=== PATIENT | female | born 1990 | race Caucasian/White ===

== ENCOUNTER 2017-04-01 05:44 | Emergency (ER) | payer OTHER, SELFPAY | END 2017-04-01 15:45 | disposition E | PROVIDERS: Emergency Provider Emergency Medicine; Visit Provider Emergency Medicine | DX: I33.0 Acute and subacute infective endocarditis (principal); E87.4 Mixed disorder of acid-base balance; I21.4 Non-ST elevation (NSTEMI) myocardial infarction; D72.829 Elevated white blood cell count, unspecified; D64.9 Anemia, unspecified; J96.01 Acute respiratory failure with hypoxia | CPT/HCPCS: 36556; 31500; 36415; 71010; 80053; 82150; 82272; 82550; 82553; 82803; 82962; 83605; 83690; 83735; 83880; 84100; 84436; 84443; 84479; 84484; 84703; 85025; 85044; 85378; 86078; 86850; 86900; 86901; 86920; 86922; 87040; 87070; 87077; 87186; 87205; 92950; 93005; 96365; 96366; 96367; 96375; 99291; G0328; J0456; J2310; P9016 ==